=== PATIENT | female | born 1985 | race Two or more races ===

== ENCOUNTER 2017-02-27 12:37 | Emergency (ER) | payer SELFPAY ==
[~2017-02-27] VITALS: Ht 170.2 cm; Wt 49.9 kg
[2017-02-27] MEDS ORDERED: OXYCONTIN10 MG ORAL (12:39)
[2017-02-27] MEDS ORDERED: GABAPENTIN100 MG ORAL (12:39)
[2017-02-27] MEDS ORDERED: TRAMADOL HCL50 MG ORAL (12:39)
[2017-02-27] MEDS ORDERED: Naloxone 1mg/ml 2ml IVP ONE ×2 (13:45→15:45)
--- NOTE | 2017-02-27 13:49 | Emergency Room Report ---
History of Present Illness General Chief Complaint: Overdose Source: Patient Present Illness HPI Patient was brought in by paramedics Complaint of overdose on heroin Patient here was awake and reports that she has done heroin recently however has not overdosed Patient was reported not to receive any Narcan And was awake responsive to painful stimuli however throughout her stay and after observation patient has become more somnolent And becoming less responsive but physical stimuli Patient denied any vomiting or diarrhea Allergies: Coded Allergies: No Known Allergies (Unverified , 02/27/17) Patient History Past Medical History: see triage record Pertinent Family History: none Reviewed Nursing Documentation: PMH: Agreed, PSxH: Agreed Nursing Documentation-PM Past Medical History: No Stated History Review of Systems All Other Systems: negative except mentioned in HPI Physical Exam Vital Signs Date Time Temp Pulse Resp B/P Pulse Ox O2 Delivery O2 Flow Rate FiO2 02/27/17 12:34 96 18 154/70 99 Room Air Sp02 EP Interpretation: reviewed, normal General Appearance: no apparent distress Head: normocephalic, atraumatic Eyes: bilateral eye EOMI, bilateral eye PERRL ENT: hearing grossly normal, TMs + canals normal, uvula midline, dry mucus membranes Neck: full range of motion, supple, no meningismus, no bony tend Respiratory: lungs clear, normal breath sounds, no rhonchi, no respiratory distress, no retraction, no accessory muscle use Cardiovascular #1: normal peripheral pulses, regular rate, rhythm, no edema, no gallop, no JVD, no murmur Gastrointestinal: normal bowel sounds, non tender, soft, no mass, no organomegaly, non-distended, no guarding, no hernia, no pulsatile mass, no rebound Genitourinary: no CVA tenderness Musculoskeletal: normal inspection Neurologic: oriented x3, responsive, 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 tested, motor strength/ tone normal, sensory intact Psychiatric: mood/affect normal Skin: other - Multiple areas of skin injection hematoma and bruising Lymphatic: normal inspection, no adenopathy Medical Decision Making Diagnostic Impression: Primary Impression: Drug overdose ER Course Initially the patient was responsive awake Was verbal with IV establishment however after further observation has become more somnolent required Narcan and further observation along with IV hydration Patient was observed further in the emergency room after further sobering and more appropriate neurological evaluation was able to be dispositioned home Rhythm Strip Diag. Results EP Interpretation: yes Rate: 88 Rhythm: NSR, no PVC's, no ectopy Last Vital Signs Date Time Temp Pulse Resp B/P Pulse Ox O2 Delivery O2 Flow Rate FiO2 02/27/17 12:34 96 18 154/70 99 Room Air Status: improved Disposition: HOME, SELF-CARE Condition: Improved Patient Instructions: Drug Overdose Additional Instructions: Patient is provided with the discharge instructions notified to follow up with primary doctor in the next 2-3 days otherwise return to the er with any worsening symptoms. Please note that this report is being documented using [employer] technology. This can lead to erroneous entry secondary to incorrect interpretation by the dictating instrument. LINA BROOKS D.O. Feb 27, 2017 13:49
[2017-02-27 14:03] VITALS: BP 113/64
[2017-02-27 15:22] VITALS: BP 111/67
[2017-02-27 16:47] VITALS: BP 123/75
== END 2017-02-27 17:49 | disposition home or self-care (01) ==
LOC: EDBD 12:37 → EMR 17:08
DX: T40.1X1A Poisoning by heroin, accidental (unintentional), initial encounter (principal); Y92.9 Unspecified place or not applicable
CPT/HCPCS: 96374; 96375; 99284; J2310